=== PATIENT | male | born 1940 | race Caucasian/White ===

== ENCOUNTER 2018-01-11 10:05 | Day surgery (SDC) | payer OTHER ==
[2018-01-05 10:20] VITALS: BMI 20.2
[2018-01-11] MEDS ORDERED: PROPOFOL 20 ML ONE (10:12)
[2018-01-11 11:39] VITALS: TEMP 98.1
[2018-01-11 12:11] VITALS: BP 130/69; PULSE 89
--- NOTE | 2018-01-12 15:33 | PATH ---
Surgical Pathology Report Patient Name: TANG HADDAD [facility]. Rec. #: [id number] /Age/Gender: 1940 (Age: 77) / F Account: [id number] Location: Taken: 01/11/2018 Received: 01/11/2018 Reported: 01/12/2018 Physicians: Dilcia Bean M.D. Specimen(s) Received A: DUODENUM B: ANTRUM C: GE JUNCTION Clinical History Preoperative diagnosis: Peptic ulcer disease, anemia Postoperative diagnosis: Gastritis Final Diagnosis A. DUODENUM, BIOPSY: DUODENAL MUCOSA WITH NO PATHOLOGIC FINDINGS. Note: Features suggestive of celiac disease are not identified in this biopsy. B. ANTRUM, BIOPSY: MODERATE CHRONIC GASTRITIS. IMMUNOSTAIN IS NEGATIVE FOR H. PYLORI ORGANISMS. C. GE JUNCTION, BIOPSY: HYPERPLASTIC ESOPHAGEAL (SQUAMOUS) MUCOSA WITH FEW INTRAEPITHELIAL EOSINOPHILS, CONSISTENT WITH REFLUX ESOPHAGITIS. NO COLUMNAR EPITHELIUM/INTESTINAL METAPLASIA IS IDENTIFIED. Electronically Signed Aury Vieyra M.D. Gross Description A. Received in formalin, labeled "duodenum" is a anguiano, irregular portion of soft tissue measuring 0.3 cm. in greatest dimension. The specimen is submitted in toto in one cassette. B. Received in formalin, labeled "antrum" is a anguiano, irregular portion of soft tissue measuring 0.3 cm. in greatest dimension. The specimen is submitted in toto in one cassette. C. Received in formalin, labeled "GE junction" is a anguiano, irregular portion of soft tissue measuring 0.3 cm. in greatest dimension. The specimen is submitted in toto in one cassette. 01/11/201801/11/2018
== END 2018-01-11 11:50 | disposition home or self-care (01) ==
LOC: FASU-ENDO 10:05 → EDSEX 14:00
PROVIDERS: ATTEND Internal Medicine Gastroenterology
PROC: 0DB58ZX Excision of Esophagus, Via Natural or Artificial Opening Endoscopic, Diagnostic (ICD-10-PCS; 2018-01-11)
PROC: 0DB98ZX Excision of Duodenum, Via Natural or Artificial Opening Endoscopic, Diagnostic (ICD-10-PCS; principal; 2018-01-11 10:55)
PROC: 0DB68ZX Excision of Stomach, Via Natural or Artificial Opening Endoscopic, Diagnostic (ICD-10-PCS; 2018-01-11 10:55)
DX: Z87.11 Personal history of peptic ulcer disease (principal); K29.50 Unspecified chronic gastritis without bleeding
CPT/HCPCS: 82962; 88305-TC; 88342-TC